=== PATIENT | male | born 1985 ===

== ENCOUNTER → 2016-05-26 | Outpatient (REF) | payer SELFPAY ==
[2016-05-26 13:29] LABS: IMMOTILITY 3 %; NON PROGRESSIVE MOTILITY (c) 13 %; PROGRESSIVE MOTILITY (a) 84 % (>=32); SPERM ABNORMAL FORMS WBC'S NOTED; TOTAL MOTILITY 97 % (>=40)
[2016-05-26 13:30] LABS: % NORMAL FORMS 35 % (>=4); SPERM# 92.6 M/Ejac (33-46); TOTAL FUNCTIONAL 44.4 M/Ejac.; TOTAL PROGRESSIVE SPERM 77.6 M/Ejac.
== END ==
LOC: M LAB REF 12:28
PROVIDERS: ATTEND Specialist
DX: N46.8 Other male infertility (principal)